=== PATIENT | male | born 1945 | race Caucasian/White ===

== ENCOUNTER 2019-05-21 05:16 | Day surgery (SDC) | payer MEDICARE, MEDICAID ==
[2019-05-17 11:22] LABS: BASOPHILS # (AUTO) 0.1 X10'3 (0-0.2); BASOPHILS % (AUTO) 0.9 % (0-1); EOSINOPHILS # (AUTO) 0.6 X10'3 (0-0.9); EOSINOPHILS % (AUTO) 8.2 % (0-6); LYMPHOCYTES # (AUTO) 1.4 X10'3 (1.1-4.8); LYMPHOCYTES % (AUTO) 20.3 % (21-51); MEAN CORPUSCULAR HEMOGLOBIN 33.6 PG (27.0-31.0); MEAN CORPUSCULAR HGB CONC 35.5 g/dL (33.0-36.5); MEAN CORPUSCULAR VOLUME 94.6 FL (78-98); MEAN PLATELET VOLUME 8.5 FL (7.4-10.4); MONOCYTES # (AUTO) 0.7 X10'3 (0-0.9); MONOCYTES % (AUTO) 9.4 % (2-12); NEUTROPHILS # (AUTO) 4.3 X10'3 (1.8-7.7); NEUTROPHILS % (AUTO) 61.2 % (42-75); PRE OP HEMATOCRIT 46.1 % (42.0-52.0); PRE OP HEMOGLOBIN 16.4 g/dL (14.0-17.9); PRE OP PLATELET COUNT 196 X10'3 (140-440); RED BLOOD COUNT 4.87 X10'6 (4.70-6.10); RED CELL DISTRIBUTION WIDTH 13.4 % (11.5-14.5)
[2019-05-17 11:23] LABS: PRE OP INR 1.1 INR; PRE OP PROTIME 10.8 SECONDS (9.0-12.0)
[2019-05-17 11:42] LABS: ALBUMIN 4.2 G/DL (3.4-5.0); ALBUMIN/GLOBULIN RATIO 1.1 (1.1-1.5); ALKALINE PHOSPHATASE 121 IU/L (46-116); BLOOD UREA NITROGEN 15 MG/DL (7-18); CALCIUM 9.3 MG/DL (8.5-10.1); CHLORIDE 108 MMOL/L (99-107); PRE OP ALT 33 U/L (30-65); PRE OP ANION GAP 9 (8-16); PRE OP AST 23 U/L (10-37); PRE OP BILIRUB, TOTAL 0.6 MG/DL (0.0-1.0); PRE OP GLUCOSE 81 MG/DL (70-104); PRE OP SODIUM 145 MMOL/L (135-145); TOTAL CARBON DIOXIDE 27.7 MMOL/L (24-32); TOTAL PROTEIN 7.9 G/DL (6.4-8.2); eGFR 73 ML/MIN
[2019-05-21] VITALS (9 sets, daily range): BP systolic 142–166; BP diastolic 81–96
[~2019-05-21] VITALS: Ht 157.5 cm; Wt 70.0 kg
[~2019-05-21 05:16] MED LIST: AMLO2.5T2 PO; ESOM40CA43 PO; ringers solution, lacted 1,000 ML IV SCH
[2019-05-21] MEDS ORDERED: famotidine 20mg tablet PO ONE (05:30)
[2019-05-21] MEDS ORDERED: LIDOcaine 1% (10mg/ml) 2ml vial ONE (06:11)
[2019-05-21] MEDS ORDERED: mupirocin 2% ointment 22GM ONE (06:39)
[2019-05-21] MEDS ORDERED: BUPIVAcaine 0.5% W/EPI /PF 30ml vial ONE (06:39)
[2019-05-21] MEDS ORDERED: cocaine 4% topical solution 4ml bottle ONE (06:39)
[2019-05-21] MEDS ORDERED: LIDOcaine 1% W/epiNEPHrine 1:100,000 20ml vial ONE (06:39)
[2019-05-21] MEDS ORDERED: oxymetazoline 15 ML nasal spray NS ONE (06:40)
[2019-05-21] MEDS ORDERED: methylPREDNISolone acetate 80mg/ml inj**IM only ONE (07:18)
[2019-05-21] MEDS ORDERED: cefTAZidime 1gm inj ONE (07:19)
[2019-05-21] MEDS ORDERED: fentaNYL/PF 50MCG/1 ML 2ML syringe ONE (07:32)
[2019-05-21] MEDS ORDERED: propofol inj 20 ML IV ONE (07:33)
[2019-05-21] MEDS ORDERED: midazolam 2 mg/2 ml injection ONE (07:33)
[2019-05-21] MEDS ORDERED: ringers solution, lacted 1,000 ML IV SCH (07:41)
[2019-05-21] MEDS ORDERED: morphine 4 MG/ML inj SYRINge IV PRN (07:45)
[2019-05-21] MEDS ORDERED: proCHLORperazine 10 MG/2 ml inj IV PRN (07:45)
[2019-05-21] MEDS ORDERED: meperidine/PF 25mg/ml syringe IV PRN ×3 (07:45)
[2019-05-21] MEDS ORDERED: ondansetron/PF 4mg/2ml inj IV PRN ×2 (07:45→10:20)
[2019-05-21] MEDS ORDERED: morphine 2 MG/ML inj. syringe IV PRN (07:45)
[2019-05-21] MEDS ORDERED: sevoflurane 250ml liquid IH ONE (08:06)
[2019-05-21] MEDS ORDERED: rocuronium 10mg/ml inj IV ONE (09:20)
[2019-05-21] MEDS ORDERED: neostigmine methylsulfate 1 MG/ML 10ml vial ONE (09:20)
[2019-05-21] MEDS ORDERED: glycopyrrolate 0.2mg/ml inj ONE (09:20)
--- NOTE | 2019-05-21 09:40 | NUR ---
Received from OR via BED , accompanied by Anesthesiologist DR HERNANDEZ and report given by Anesthesiolgist. PATIENT WAKING UP, DENIES PAIN, V/S WNL, CSM INTACT, 20G PIV TO RUE, COTTONOID PACKING TO BILATERALLY SINUSES WITH NO ACTIVE DRAINAGE VISABLE AT THIS TIME
[2019-05-21] MEDS ORDERED: oxymetazoline 15 ML nasal spray NS SCH ×2 (10:11→20:00)
[2019-05-21] MEDS ORDERED: mupirocin 2% nasal ointment 1gm UD NS SCH (10:11)
[2019-05-21] MEDS ORDERED: ondansetron 4mg rapidly disintigrating tab PO PRN (10:15)
[2019-05-21] MEDS ORDERED: salt irrigation nasal spray 45 ML SPRAY NS PRN ×2 (10:15→10:20)
--- NOTE | 2019-05-21 10:40 | NUR ---
PATIENT A&OX4, DENIES PAIN, V/S WNL, CSM INTACT, 20G PIV TO RUE D/C, COTTONOID PACKING TO BILATERALLY SINUSES REMOVED AT 1010 WITH NO ACTIVE DRAINAGE VISABLE AT THIS TIME, SALINE OCEAN SPRAY AND OINTMENT GIVEN ORDERED. I HAVE REVIEWED D/C INSTRUCTIONS WITH PATIENT AND FAMILY AND THEY HAVE VERBALIZED UNDERSTANDING. PATIENT D/C HOME WITH ALL BELONGINGS AND FAMILY GAVE TRANSPORT HOME.
== END 2019-05-21 10:40 | disposition home or self-care (01) ==
LOC: PAS 05:16
PROVIDERS: ATTEND Otolaryngology
DX: J32.2 Chronic ethmoidal sinusitis (principal); J33.8 Other polyp of sinus
CPT/HCPCS: 31255; 36415; 61782; 80053; 82948; 84443; 85025; 85576; 85610; 85730; 93005; A6402; C9250; J0713; J1040; J2001; J2250; J2704; J2710; J3010; J7040; J7120; A4618; A7000; J3490

== ENCOUNTER 2019-05-22 16:43 | Emergency (ER) | payer MEDICARE, MEDICAID ==
[~2019-05-22] VITALS: Ht 157.5 cm; Wt 72.7 kg
[~2019-05-22 16:43] MED LIST changes: -ringers solution, lacted 1,000 ML IV SCH
[2019-05-22] MEDS ORDERED: normal saline 1000ml 1,000 ML IV ONE (18:35)
--- NOTE | 2019-05-22 18:38 | NUR ---
600mL URINE RETENTION ON BLADDER SCANNER
[2019-05-22] MEDS ORDERED: LIDOcaine 2% 10ml TOPICAL JELLY (Urojet) MM ONE (18:50)
[2019-05-22 18:55] LABS: HEMATOCRIT 46.7 % (42.0-52.0); HEMOGLOBIN 16.5 g/dl (14.0-17.9); LYMPHOCYTES # (AUTO) 0.6 X10'3 (1.1-4.8); MEAN CORPUSCULAR HEMOGLOBIN 33.6 PG (27.0-31.0); MEAN CORPUSCULAR HGB CONC 35.3 g/dL (33.0-36.5); MEAN CORPUSCULAR VOLUME 95.3 FL (78-98)
[2019-05-22 18:57] LABS: BASOPHILS % (AUTO) 0.3 % (0-1); EOSINOPHILS % (AUTO) 0.1 % (0-6); MEAN PLATELET VOLUME 7.6 FL (7.4-10.4); MONOCYTES % (AUTO) 7.9 % (2-12); NEUTROPHILS # (AUTO) 10.6 X10'3 (1.8-7.7); NEUTROPHILS % (AUTO) 86.7 % (42-75); PLATELET COUNT 217 X10'3 (140-440); RED CELL DISTRIBUTION WIDTH 13.7 % (11.5-14.5); WHITE BLOOD COUNT 12.2 X10'3 (4.5-11.0)
[2019-05-22 19:09] LABS: PARTIAL THROMBOPLASTIN TIME 25 SECONDS (22-32)
[2019-05-22 19:11] LABS: ALANINE AMINOTRANSFERASE 23 U/L (12-78); ALBUMIN 4.4 G/DL (3.4-5.0); ALBUMIN/GLOBULIN RATIO 1.1 (1.1-1.5); ALKALINE PHOSPHATASE 107 IU/L (46-116); ANION GAP 12 (8-16); ASPARTATE AMINO TRANSFERASE 24 U/L (10-37); BILIRUBIN,TOTAL 0.9 MG/DL (0.1-1.0); BLOOD UREA NITROGEN 22 MG/DL (7-18); BUN/CREATININE RATIO 16.1 (5.4-32.0); CALCIUM 9.7 MG/DL (8.5-10.1); CHLORIDE 107 MMOL/L (99-107); CREATININE 1.37 MG/DL (0.60-1.10); GLUCOSE 175 MG/DL (70-104); POTASSIUM 4.1 MMOL/L (3.5-5.1); SODIUM 141 MMOL/L (135-145); TOTAL CARBON DIOXIDE 22.2 MMOL/L (24-32); TOTAL PROTEIN 8.5 G/DL (6.4-8.2); eGFR 51 ML/MIN
[2019-05-22 19:49] LABS: PLATELET ESTIMATE NORMAL
[2019-05-22 20:27] VITALS: BP 159/82
== END 2019-05-22 20:51 | disposition home or self-care (01) ==
LOC: ER 16:44
DX: N40.1 Benign prostatic hyperplasia with lower urinary tract symptoms (principal); R33.8 Other retention of urine; N20.0 Calculus of kidney; R31.9 Hematuria, unspecified; Z79.899 Other long term (current) drug therapy
CPT/HCPCS: 36415; 51702; 74176; 80053; 85025; 85610; 85730; 99284; J7030

== ENCOUNTER 2019-07-31 08:08 | Day surgery (SDC) | payer MEDICARE, MEDICAID ==
[2019-07-27 15:45] LABS: BASOPHILS # (AUTO) 0.1 X10'3 (0-0.2); BASOPHILS % (AUTO) 1.2 % (0-1); EOSINOPHILS # (AUTO) 0.4 X10'3 (0-0.9); EOSINOPHILS % (AUTO) 5.9 % (0-6); HEMATOCRIT 42.6 % (42.0-52.0); HEMOGLOBIN 14.8 g/dl (14.0-17.9); LYMPHOCYTES # (AUTO) 1.1 X10'3 (1.1-4.8); LYMPHOCYTES % (AUTO) 18.2 % (21-51); MEAN CORPUSCULAR HEMOGLOBIN 33.6 PG (27.0-31.0); MEAN CORPUSCULAR HGB CONC 34.6 g/dL (33.0-36.5); MEAN CORPUSCULAR VOLUME 97.1 FL (78-98); MEAN PLATELET VOLUME 7.4 FL (7.4-10.4); MONOCYTES # (AUTO) 0.6 X10'3 (0-0.9); NEUTROPHILS % (AUTO) 64.7 % (42-75); PLATELET COUNT 269 X10'3 (140-440); RED BLOOD COUNT 4.39 X10'6 (4.70-6.10); RED CELL DISTRIBUTION WIDTH 13.7 % (11.5-14.5); WHITE BLOOD COUNT 6.1 X10'3 (4.5-11.0)
[2019-07-27 15:59] LABS: PARTIAL THROMBOPLASTIN TIME 27 SECONDS (22-32)
[2019-07-27 16:02] LABS: ALANINE AMINOTRANSFERASE 26 U/L (12-78); ALBUMIN 3.9 G/DL (3.4-5.0); ALBUMIN/GLOBULIN RATIO 1.1 (1.1-1.5); ALKALINE PHOSPHATASE 137 IU/L (46-116); ANION GAP 5 (8-16); ASPARTATE AMINO TRANSFERASE 19 U/L (10-37); BILIRUBIN,TOTAL 0.4 MG/DL (0.1-1.0); BLOOD UREA NITROGEN 17 MG/DL (7-18); BUN/CREATININE RATIO 15.9 (5.4-32.0); CALCIUM 8.8 MG/DL (8.5-10.1); CHLORIDE 110 MMOL/L (99-107); CREATININE 1.07 MG/DL (0.60-1.10); GLUCOSE 120 MG/DL (70-104); POTASSIUM 3.7 MMOL/L (3.5-5.1); SODIUM 144 MMOL/L (135-145); TOTAL CARBON DIOXIDE 28.8 MMOL/L (24-32); TOTAL PROTEIN 7.6 G/DL (6.4-8.2); eGFR 67 ML/MIN
[2019-07-31] VITALS (9 sets, daily range): BP systolic 131–156; BP diastolic 71–98
[~2019-07-31] VITALS: Ht 157.5 cm; Wt 72.1 kg
[~2019-07-31 08:08] MED LIST changes: +famotidine 20mg tablet PO ONE; +ringers solution, lacted 1,000 ML IV SCH
[2019-07-31] MEDS ORDERED: ringers solution, lacted 1,000 ML IV SCH (12:43)
[2019-07-31] MEDS ORDERED: labetalol 20mg/4ml (5mg/ml) syringe IV PRN (12:45)
[2019-07-31] MEDS ORDERED: HYDROmorphone inj. 0.5 MG/0.5 ML DISP.SYRIN IV PRN ×2 (12:45)
[2019-07-31] MEDS ORDERED: meperidine/PF 25mg/ml syringe IV PRN ×2 (12:45)
[2019-07-31] MEDS ORDERED: proCHLORperazine 10 MG/2 ml inj IV PRN (12:45)
[2019-07-31] MEDS ORDERED: ondansetron/PF 4mg/2ml inj IV PRN (12:45)
[2019-07-31] MEDS ORDERED: acetaminophen 1,000mg/100ml IV 100 ML IV PRN (12:45)
[2019-07-31] MEDS ORDERED: hydrALAZINE 20mg/ml inj. IV PRN (12:45)
[2019-07-31] MEDS ORDERED: cocaine 4% topical solution 4ml bottle ONE (12:50)
[2019-07-31] MEDS ORDERED: triamcinolone acetonide 40mg/ml inj ONE (12:50)
[2019-07-31] MEDS ORDERED: cefTAZidime 1gm inj ONE (12:51)
[2019-07-31] MEDS ORDERED: LIDOcaine 1% W/epiNEPHrine 1:100,000 20ml vial ONE (12:51)
[2019-07-31] MEDS ORDERED: BUPIVAcaine 0.5% W/EPI /PF 30ml vial ONE (12:51)
[2019-07-31] MEDS ORDERED: mupirocin 2% ointment 22GM ONE (12:51)
[2019-07-31] MEDS ORDERED: oxymetazoline 15 ML nasal spray NS ONE (12:51)
[2019-07-31] MEDS ORDERED: ePHEDrine 50MG/ML INJ. ONE (13:12)
[2019-07-31] MEDS ORDERED: sevoflurane 250ml liquid IH ONE (13:12)
[2019-07-31] MEDS ORDERED: midazolam 2 mg/2 ml injection ONE (13:46)
[2019-07-31] MEDS ORDERED: fentaNYL/PF 50MCG/1 ML 2ML syringe ONE (13:49)
[2019-07-31] MEDS ORDERED: 0.9 % SODIUM CHLORIDE 10 ML VIAL ONE ×3 (14:05)
[2019-07-31] MEDS ORDERED: propofol inj 20 ML IV ONE ×2 (14:05→15:24)
[2019-07-31] MEDS ORDERED: ondansetron/PF 4mg/2ml inj ONE (14:05)
[2019-07-31] MEDS ORDERED: LIDOcaine 2% (20mg/ml) 5ml vial ONE (14:05)
[2019-07-31] MEDS ORDERED: dexamethasone sod phosphate 4mg/ml inj. ONE (14:06)
[2019-07-31] MEDS ORDERED: LIDOcaine 2% 5ml jelly ONE ×2 (15:24)
[2019-07-31] MEDS ORDERED: labetalol 20mg/4ml (5mg/ml) syringe IV ONE (15:28)
[2019-07-31] MEDS ORDERED: LIDOcaine 1%/PF 5ML 10 MG/ML VIAL ONE (15:32)
--- NOTE | 2019-07-31 15:42 | NUR ---
Received from OR via , accompanied by Anesthesiologist DR LEWIS and report given by Anesthesiolgist.AWAKENS TO VOICE. VITALS STABLE. DRESSINGS DI. VICTOR M PAIN. LOVE WITH CLEAR URINE.
[2019-07-31] MEDS: meperidine/PF 25mg/ml syringe IV PRN ×2 (16:15→16:49)
[2019-07-31] MEDS ORDERED: oxymetazoline 15 ML nasal spray NS SCH ×2 (17:12→20:00)
--- NOTE | 2019-07-31 17:12 | NUR ---
AWAKE AND ORIENTED. VITALS STABLE. DRESSINGS DI. STATES PAIN IMPROVING. HOME AT THIS TIME. WITH FAMILY.
[2019-07-31] MEDS ORDERED: mupirocin 2% ointment 22GM TP SCH (17:13)
[2019-07-31] MEDS ORDERED: salt irrigation nasal spray 45 ML SPRAY NS PRN (17:15)
== END 2019-07-31 17:12 | disposition home or self-care (01) ==
LOC: PAS 08:08
PROVIDERS: ATTEND Otolaryngology
DX: J32.8 Other chronic sinusitis (principal); J33.8 Other polyp of sinus; I10 Essential (primary) hypertension; K21.9 Gastro-esophageal reflux disease without esophagitis; E03.9 Hypothyroidism, unspecified; N40.0 Benign prostatic hyperplasia without lower urinary tract symptoms; Z79.899 Other long term (current) drug therapy; Z79.01 Long term (current) use of anticoagulants; Z87.891 Personal history of nicotine dependence; Z85.21 Personal history of malignant neoplasm of larynx; Z11.59 Encounter for screening for other viral diseases
CPT/HCPCS: 31253; 31259; 31267; 36415; 61782; 80053; 82948; 85025; 85576; 85610; 85730; 87635; C9250; J0131; J0713; J1100; J2001; J2175; J2250; J2405; J2704; J3010; J3301; J7040; J7120; 88304; 88311; A4618; A7000; J3490

== ENCOUNTER 2024-03-30 06:40 | Day surgery (SDC) | payer MEDICARE, MEDICAID ==
[~2024-03-30] VITALS: Ht 165.1 cm; Wt 69.4 kg
[2024-03-30] VITALS (19 sets, daily range): BP systolic 115–178; BP diastolic 65–108; PULSE 91–123; RESP 12–18; TEMP 99.3; O2SAT 93–100
[~2024-03-30 06:40] MED LIST changes: -famotidine 20mg tablet PO ONE; -ringers solution, lacted 1,000 ML IV SCH
[2024-03-30] MEDS ORDERED: LOSA1TAB36 PO (07:36)
[2024-03-30] MEDS ORDERED: HYDR-3964 PO (07:36)
[2024-03-30] MEDS ORDERED: LEVO50TA8 PO (07:36)
[2024-03-30 07:41] LABS: BASOPHILS % (AUTO) 0.5 % (0-1); EOSINOPHILS # (AUTO) 0.3 X10'3 (0-0.9); EOSINOPHILS % (AUTO) 3.6 % (0-6); HEMATOCRIT 42.1 % (42.0-52.0); HEMOGLOBIN 14.4 g/dl (14.0-17.9); LYMPHOCYTES # (AUTO) 0.9 X10'3 (1.1-4.8); LYMPHOCYTES % (AUTO) 11.6 % (21-51); MEAN CORPUSCULAR HEMOGLOBIN 32.2 PG (27.0-31.0); MEAN CORPUSCULAR HGB CONC 34.1 g/dL (33.0-36.5); MEAN CORPUSCULAR VOLUME 94.3 FL (78-98); MEAN PLATELET VOLUME 7.8 FL (7.4-10.4); MONOCYTES % (AUTO) 13.2 % (2-12); NEUTROPHILS # (AUTO) 5.4 X10'3 (1.8-7.7); NEUTROPHILS % (AUTO) 71.1 % (42-75); PLATELET COUNT 233 X10'3 (140-440); RED BLOOD COUNT 4.47 X10'6 (4.70-6.10); RED CELL DISTRIBUTION WIDTH 12.7 % (11.5-14.5); WHITE BLOOD COUNT 7.5 X10'3 (4.5-11.0)
[2024-03-30 08:01] LABS: APTT 29 SECONDS (22-32); INR 1.1 INR; PROTHROMBIN TIME 11.9 SECONDS (9.0-12.0)
[2024-03-30 08:15] LABS: ALBUMIN 2.9 G/DL (3.4-5.0); ANION GAP 12 (8-16); BLOOD UREA NITROGEN 27 MG/DL (7-18); BUN/CREATININE RATIO 25.2 (10.0-20.0); CHLORIDE 104 MMOL/L (99-107); CREATININE 1.07 MG/DL (0.60-1.10); GLUCOSE 106 MG/DL (70-104); POTASSIUM 3.7 MMOL/L (3.5-5.1); SODIUM 142 MMOL/L (135-145); TOTAL CARBON DIOXIDE 26.5 MMOL/L (24-32); eCRCL 48 ML/MIN; eGFR 66 ML/MIN
[2024-03-30] MEDS ORDERED: LIDOcaine 1% (10mg/ml) 2ml vial ONE ×2 (08:49→09:11)
[2024-03-30] MEDS ORDERED: fentaNYL/PF 50MCG/1 ML 2ML syringe ONE (08:50)
[2024-03-30] MEDS ORDERED: midazolam 1 mg/ML 2ml injection ONE (08:50)
[2024-03-30] MEDS ORDERED: gelatin sponge, absorbable (Gelfoam 12-7MM) sponge TP ONE (09:11)
[2024-03-30] MEDS ORDERED: iohexol 350MG/ML 100ml bottle IV ONE (09:12)
== END 2024-03-30 13:00 | disposition home or self-care (01) ==
LOC: SSTAY O 06:40
PROVIDERS: ATTEND Surgery
DX: C85.20 Mediastinal (thymic) large B-cell lymphoma, unspecified site (principal); M19.90 Unspecified osteoarthritis, unspecified site; I10 Essential (primary) hypertension; Z79.01 Long term (current) use of anticoagulants; Z79.899 Other long term (current) drug therapy; Z85.21 Personal history of malignant neoplasm of larynx; Z98.49 Cataract extraction status, unspecified eye
CPT/HCPCS: 32408; 36415; 77012; 80048; 85025; 85610; 85730; 88184; 88185; A4620; A6402; J2003; J7030; Q9967; 88305; 88342; 88360; A6449; J2250; J3010

== ENCOUNTER 2024-04-06 15:20 | Emergency (ER) | payer MEDICARE, MEDICAID ==
[~2024-04-06] VITALS: Ht 165.1 cm; Wt 71.8 kg
[~2024-04-06 15:20] MED LIST changes: -AMLO2.5T2 PO; +HYDR-3964 PO; +LEVO50TA8 PO; +LOSA1TAB36 PO
[2024-04-06] MEDS ORDERED: iohexol 300mg/ml 100ml inj. ONE (17:05)
[2024-04-06 17:16] LABS: BASOPHILS # (AUTO) 0.1 X10'3 (0-0.2); BASOPHILS % (AUTO) 0.8 % (0-1); EOSINOPHILS % (AUTO) 0.7 % (0-6); HEMATOCRIT 42.5 % (42.0-52.0); HEMOGLOBIN 14.2 g/dl (14.0-17.9); LYMPHOCYTES # (AUTO) 0.6 X10'3 (1.1-4.8); LYMPHOCYTES % (AUTO) 9.2 % (21-51); MEAN CORPUSCULAR HEMOGLOBIN 31.6 PG (27.0-31.0); MEAN CORPUSCULAR HGB CONC 33.4 g/dL (33.0-36.5); MEAN CORPUSCULAR VOLUME 94.9 FL (78-98); MEAN PLATELET VOLUME 7.8 FL (7.4-10.4); MONOCYTES # (AUTO) 0.6 X10'3 (0-0.9); MONOCYTES % (AUTO) 8.7 % (2-12); NEUTROPHILS # (AUTO) 5.3 X10'3 (1.8-7.7); NEUTROPHILS % (AUTO) 80.6 % (42-75); PLATELET COUNT 276 X10'3 (140-440); RED BLOOD COUNT 4.48 X10'6 (4.70-6.10); WHITE BLOOD COUNT 6.6 X10'3 (4.5-11.0)
[2024-04-06 17:27] LABS: ALANINE AMINOTRANSFERASE 41 U/L (12-78); ALBUMIN 3.5 G/DL (3.4-5.0); ALBUMIN/GLOBULIN RATIO 0.8 (1.1-1.5); ALKALINE PHOSPHATASE 183 IU/L (46-116); ANION GAP 17 (8-16); ASPARTATE AMINO TRANSFERASE 47 U/L (10-37); BILIRUBIN,TOTAL 0.9 MG/DL (0.1-1.0); BLOOD UREA NITROGEN 32 MG/DL (7-18); BUN/CREATININE RATIO 25.8 (10.0-20.0); CALCIUM 9.3 MG/DL (8.5-10.1); CHLORIDE 106 MMOL/L (99-107); CREATININE 1.24 MG/DL (0.60-1.10); GLUCOSE 114 MG/DL (70-104); POTASSIUM 4.1 MMOL/L (3.5-5.1); SODIUM 141 MMOL/L (135-145); TOTAL CARBON DIOXIDE 18.2 MMOL/L (24-32); TOTAL PROTEIN 7.8 G/DL (6.4-8.2); eCRCL 41 ML/MIN; eGFR 56 ML/MIN
[2024-04-06] MEDS: heparin 10,000 units/1 ML INJ IV ONE (19:13)
[2024-04-06 19:15] LABS: APTT 28 SECONDS (22-32); INR 1.3 INR
[2024-04-06 19:17] LABS: BILIRUBIN,URINE NEGATIVE (Neg); CLARITY,URINE CLEAR (Clear); COLOR,URINE YELLOW (Yellow); GLUCOSE, URINE NEGATIVE (Neg); KETONES,URINE 40 mg/dl (Neg); LEUKOCYTE ESTERASE ,URINE NEGATIVE (Neg); NITRITES, URINE NEGATIVE (Neg); OCCULT BLOOD,URINE MODERATE (Neg); PH,URINE 5.5 (4.8-8.0); PROTEIN,URINE 30 mg/dl (Neg); UROBILINOGEN,URINE 0.2 E.U/dL (0.2-1.0)
[2024-04-06 19:24] LABS: UA COLLECTION TYPE CLN CATCH MIDSTREAM
[2024-04-06] MEDS: normal saline 1000ML IV soln IVB ONE (19:24)
[2024-04-06 19:25] LABS: BACTERIA,URINE NONE SEEN /HPF (Neg); RBC,URINE 20-50 /HPF (0-2); SQUAMOUS EPITHELIAL CELL,UR NONE SEEN /LPF (FEW); WBC,URINE 0-4 /HPF (0-4)
[2024-04-06] MEDS ORDERED: LORA-268 PO (19:56)
[2024-04-06] MEDS ORDERED: HYDR-3965 PO (20:01)
[2024-04-06] MEDS: HYDROcodone/acetaminophen 5mg/325mg tablet PO ONE (22:48)
[2024-04-06 22:52] VITALS: PULSE 87; RESP 26; O2SAT 96
[2024-04-06] MEDS: ipratropium/albuterol 3ml nebule NEB ONE (22:52)
[2024-04-06 23:01] VITALS: PULSE 87; RESP 30
[2024-04-07] MEDS: normal saline 1000ML IV soln IVB ONE (00:01)
[2024-04-07] MEDS: morphine 4 MG/ML inj SYRINge IV ONE (00:06)
[2024-04-07] MEDS: morphine 10mg/ml inj. IV ONE ×5 (00:45→03:56)
[2024-04-07] MEDS: ketorolac trometh 15mg/ml vial 15 MG/ML ML IM ONE (00:48)
[2024-04-07] MEDS: LORazepam 0.5 MG tablet PO PRN (00:50)
[2024-04-07] MEDS: ondansetron/PF 4mg/2ml inj IV ONE (02:58)
[2024-04-07] MEDS ORDERED: amiodarone 50MG/ML inj IV STA (03:00)
[2024-04-07 03:02] VITALS: TEMP 97.3
[2024-04-07] MEDS: morphine 4 MG/ML inj SYRINge IV STA (03:04)
[2024-04-07] MEDS ORDERED: amiodarone 150mg/dext, iso-os 100 ML IV SCH (03:05)
[2024-04-07 03:06] LABS: ABG HCO3 9.1 mmol/L (21.0-28.0); ABG OXYGEN SATURATION 95.5 % (94.0-98.0); ABG PCO2 (T) 28.1 mmHg (35.0-48.0); ABG PH (T) 7.124 (7.350-7.450); ABG PO2 (T) 100.4 mmHg (83.0-108.0); ALLEN'S TEST POSITIVE; FCOHb 0.3 % (0.5-1.5); FHHb 4.5 % (0.0-5.0); FLOW 10 L/min; FMetHb 0.1 % (0.0-1.5); FO2Hb 95.1 % (94.0-98.0); MODE MASK - SIMPLE; PATIENT TEMPERATURE 36.3
[2024-04-07 05:49] VITALS: BP 73/35; PULSE 39; RESP 5; O2SAT 52
== END 2024-04-07 08:51 ==
LOC: ER 15:20
DX: I87.1 Compression of vein (principal); I26.99 Other pulmonary embolism without acute cor pulmonale; I48.91 Unspecified atrial fibrillation; Z79.899 Other long term (current) drug therapy
CPT/HCPCS: 36415; 36600; 71045; 71260; 80053; 81001; 82803; 83605; 85018; 85025; 85610; 85730; 93005; 94640; 96374; 96375; 96376; 99291; 99292; A4615; J1644; J2270; J2405; J7030; Q9967; 94760; 96365; J2274